=== PATIENT | male | born 1960 | race Caucasian/White ===

== ENCOUNTER → 2016-12-02 | Outpatient (CLI) | payer BC, OTHER ==
--- NOTE | 2016-12-02 17:16 | CT ---
EXAMINATION TYPE: CT foot RT wo con DATE OF EXAM: 12/02/2016 COMPARISON: NONE HISTORY: Post op right big toe sx. CT DLP: 366 mGycm Automated exposure control for dose reduction was used. FINDINGS: Multiple axial sections were obtained from the level of the mid tibia to the bottom of the foot with no contrast. FINDINGS: There is a plate with screws fixing a fracture of the distal shaft of the proximal phalanx of the big toe. Detail is limited by metal artifact. The fragments appear to be in anatomic position. There is narrowing of first MP joint space. IP joint space of the big toe is intact. The metatarsals appear in tact. There are plantar and Achilles calcaneal spurs. Subtalar joint is intact. The ankle mortise is anatomic. IMPRESSION: MODERATE CALCANEAL SPURRING. HEALING FRACTURE OF THE PROXIMAL PHALANX OF THE BIG TOE. POSTSURGICAL CH ANGES. I HAVE NO OLD EXAM TO COMPARE. FRACTURE LINE IS STILL VISIBLE. I SEE NO FOCAL BONE DESTRUCTION TO SUGGEST OSTEOMYELITIS.
== END | disposition home or self-care (01) ==
LOC: RADCTMAIN 15:51
PROVIDERS: ATTEND Orthopaedic Surgery
DX: M77.31 Calcaneal spur, right foot (principal); Z98.890 Other specified postprocedural states

== ENCOUNTER → 2021-08-19 | Outpatient (CLI) | payer BC ==
--- NOTE | 2021-08-20 07:48 | CTL ---
EXAMINATION TYPE: CT Low Dose Lung DATE OF EXAM ORDERED: 08/19/2021 HISTORY: Tobacco use. Lung cancer screening CT DLP: 92.[address] CTDI: 2.6 mGy Automated exposure control for dose reduction was used. SCREENING VISIT: Baseline COMPARISON: None available TECHNIQUE: Low dose computed tomography scan was performed through the chest at 1 mm thick sections a nd reconstructed images in multiple planes at 1 mm and [address] DIAGNOSTIC QUALITY: Satisfactory FINDINGS: LUNG NODULES: None. Right lower lobe solid suspicious nodule with spiculated margin measuring 18 x 20 mm image 182. LUNGS: COPD: Severity: None Fibrosis: Severity: None Lymph nodes: No pathologically enlarged lymph nodes by this nonenhanced CT scan. Other findings: Right lower lobe linear pulmonary atelectasis adjacent to the described lung lesion. RIGHT PLEURAL SPACE: Effusion: None Calcification: None Thickening: None Pneumothorax: None LEFT PLEURAL SPACE: Effusion: None Calcification: None Thickening: None Pneumothorax: None HEART: Heart Size: Normal Coronary Calcification: None Pericardial Effusion: None OTHER FINDINGS: Upper abdomen: None Bony thorax: Indeterminate lucency within the sternum, for further bone scan assessment. No destructi ve bone lesion. Supraclavicular region: None Other: Right axillary surgical clips. The pulmonary trunk measures 3.2 cm. IMPRESSION: Right lower lobe suspicious lesion with spiculated margin measuring up to 2 cm as describ ed above, for further PET scan assessment and tissue diagnosis. Subtle lucency within the sternum, po ssibly benign however precautionary bone scan should be considered. CT LUNG RAD AND CT CHEST RECOMMENDATION: Lung-Rad 4B or 4X Very Suspicious: Follow-up Chest CT with o r without contrast or PET/CT and/or tissue sampling. PET/CT may be used when there is a > 8 mm solid component. S Modifier (other clinically significant findings): Sternal lesion as described above
== END | disposition home or self-care (01) ==
LOC: RADCTMAIN 18:25
PROVIDERS: ATTEND Family Medicine
DX: Z09 Encounter for follow-up examination after completed treatment for conditions other than malignant neoplasm (principal); Z87.891 Personal history of nicotine dependence
CPT/HCPCS: 71271

== ENCOUNTER 2021-09-15 08:00 | Day surgery (SDC) | payer BC ==
[2021-09-11 18:04] VITALS: BMI 36.7
[~2021-09-15 08:00] MED LIST: LACTATED RINGERS 1,000 ML IV SCH; LIDOCAINE 1% (10MG/ML) FOR IV START INTRADERMA PRN
[2021-09-15] MEDS ORDERED: LACTATED RINGERS 1,000 ML IV ONE (08:39)
[2021-09-15 08:49] VITALS: TEMP 97.8
[2021-09-15] MEDS ORDERED: LIDOCAINE 1% INJ 10MG/ML (20 ML MDV) ONE (09:09)
[2021-09-15] MEDS ORDERED: PROPOFOL 10 MG/ML 20 ML VIAL IV ONE (09:09)
--- NOTE | 2021-09-15 09:28 | P.PCN ---
Date of Procedure: 09/15/21 Procedure(s) Performed: BRIEF HISTORY: Patient is a 60-year-old pleasant male scheduled for an elective colonoscopy as a part of screening for colorectal neoplasia. Last colonoscopy was 11 years PROCEDURE PERFORMED: Colonoscopy With snare polypectomy PREOPERATIVE DIAGNOSIS: Screening for colon cancer. IV sedation per Anesthesia. PROCEDURE: After informed consent was obtained, the patient, was brought into the endoscopy unit. IV sedation was administered by Anesthesia under continuous monitoring. Digital rectal examination was normal. Initially the Olympus CF-160 flexible video colonoscope was then inserted in the rectum, gradually advanced into the cecum without any difficulty. Careful examination was performed as the scope was gradually being withdrawn. Ileocecal valve and the appendiceal orifice were visualized and appeared normal. Prep was excellent. Mucosa of the cecum, we normal. In the ascending colon there was a 3 mm and 6 mm polyps removed by snare polypectomy. In the past flexure there was a 5 mm sessile polyp removed by snare polypectomy. In the transverse colon there was a 5 mm polyp that was removed by snare polypectomy. Rest of the ascending colon, transverse colon, descending colon, sigmoid colon, and rectum appeared normal. Retroflexion was performed in the rectum and no lesions were seen. The patient tolerated the procedure well. IMPRESSION: 5 mm sessile hepatic flexure polyp status post polypectomy 3 mm and 6 mm ascending colon polyp status post polypectomy 5 mm transverse colon polyp status post polypectomy RECOMMENDATIONS: Findings of this examination were discussed with the patient as well as a family. He was advised to follow with the biopsy results. If the biopsy results adenoma he can have a repeat colonoscopy in 3 years.
[2021-09-15 09:37] VITALS: RESP 16
[2021-09-15 09:58] VITALS: BP 158/95; PULSE 61
== END 2021-09-15 10:08 | disposition home or self-care (01) ==
LOC: ORWHC2ENDO 08:00
PROVIDERS: ATTEND Internal Medicine Gastroenterology
DX: Z12.11 Encounter for screening for malignant neoplasm of colon (principal); D12.3 Benign neoplasm of transverse colon; D12.2 Benign neoplasm of ascending colon; I10 Essential (primary) hypertension; G47.33 Obstructive sleep apnea (adult) (pediatric); Z79.82 Long term (current) use of aspirin; Z79.899 Other long term (current) drug therapy
CPT/HCPCS: 88305; 45385; J2001; J2704

== ENCOUNTER → 2021-09-16 | Outpatient (CLI) | payer BC ==
--- NOTE | 2021-09-11 15:46 | PE ---
EXAMINATION TYPE: PET CT fusion skull to thigh DATE OF EXAM: 09/11/2021 COMPARISON: Low-dose lung screening CT August 19, 2021 HISTORY: Solitary pulmonary nodule, abnormal CT. TECHNIQUE: Following the intravenous administration of 9.98 mCi of F-18 FDG, whole body images are p erformed from the skull base to the midthigh. Images are reviewed on the computer in the coronal, ax ial, and sagittal planes. Reconstructed rotating images are created on independent workstation and r eviewed on the computer. A localization and attenuation correction CT is performed in conjunction w ith the PET scan. Blood glucose level equals 102. SCAN: Initial Scan FINDINGS: SKULL BASE AND NECK: No areas of abnormal hypermetabolic uptake. CHEST, MEDIASTINUM, AND HILAR REGION: Persistent suspicious 2.0 x 1.7 cm superior right lower lobe no dule axial image 118 with mild hypermetabolic uptake, max SUV is 2.86. No additional areas of abnormal hypermetabolic uptake in the thorax. ABDOMEN AND PELVIS: No adrenal masses. No abnormal hypermetabolic uptake. Normal excretion. OSSEOUS STRUCTURES: No abnormal hypermetabolic uptake. OTHER CT: No significant incidental finding. IMPRESSION: Persistent 2.0 cm superior right lower lobe nodule with mild hypermetabolic uptake. Neopl asm cannot be excluded. No suspicious adenopathy or metastatic disease seen.
--- NOTE | 2021-09-16 15:16 | NM ---
EXAMINATION TYPE: NM bone scan whole body DATE OF EXAM: 09/16/2021 COMPARISON: NONE HISTORY: R91.[address], R91.1 Lung nodule Delayed whole-body scanning was performed following the injection of 23.7 mCi Tc 99m MDP. Images acq uired 3 hours post injection. FINDINGS: Increased radiotracer accumulation is noted to involve the shoulders, sternoclavicular joints, mid th oracic spine, lumbar spine, bilateral knees left greater than right as well as bilateral ankles and f eet. Focal area of increased radiotracer accumulation is noted to involve the right temporal calvariu m as well as the sternal manubrium. IMPRESSION: Radiographic correlation of the bony calvarium and sternum is recommended to exclude metastatic disea se.
== END | disposition home or self-care (01) ==
LOC: RADNMMAIN 09-11 07:42
PROVIDERS: ATTEND Family Medicine
DX: R91.1 Solitary pulmonary nodule (principal); R91.8 Other nonspecific abnormal finding of lung field
CPT/HCPCS: 78815; 78306; A9552; A9503

== ENCOUNTER 2021-09-24 12:47 | Day surgery (SDC) | payer BC ==
[2021-09-23 08:53] VITALS: BMI 35.3
[~2021-09-24 12:47] MED LIST changes: +ALBUTEROL NEB (CONC) 2.5 MG/0.5 ML INHALATION ONE; +DEXAMETHASONE SOD PHOSPHATE 4 MG/ML 1 ML VIAL IV ONE; +LIDOCAINE 2% (PF) 20 MG/ML 5 ML VIAL INHALATION ONE; +LIDOCAINE VISCOUS 300 MG/15 ML CUP MUCOUS MEM ONE; +ONDANSETRON 4 MG/2 ML VIAL IVP ONE; +SODIUM CHLORIDE 0.9% 1,000 ML IV SCH; +fentaNYL (PF) 50 MCG/ML 2 ML AMP IV PRN
[2021-09-24 13:28] VITALS: RESP 16; TEMP 97.1
--- NOTE | 2021-09-24 14:21 | CT ---
EXAMINATION TYPE: CT Chest zhanna Navarrete Protocol DATE OF EXAM: 09/24/2021 COMPARISON: PET/CT September 11, 2021 HISTORY: Navigational bronchoscopy CT DLP: 771 mGycm Automated exposure control for dose reduction was used. FINDINGS: Exam is for bronchoscopy planning for diagnostic purposes. Redemonstration of targeted spiculated 1.8 cm mass in the right lower lobe image 35 series 6. No other significant finding is seen. IMPRESSION: As above.
[2021-09-24] MEDS ORDERED: fentaNYL (PF) 50 MCG/ML 2 ML AMP ONE (14:45)
[2021-09-24] MEDS ORDERED: PHENYLEPHRINE-0.9% NACL SYG 1,000 MCG/10 ML SYRINGE ONE (14:45)
[2021-09-24] MEDS ORDERED: MIDAZOLAM 2 MG/2 ML VIAL ONE (14:45)
[2021-09-24] MEDS ORDERED: LIDOCAINE 2% INJ 20 MG/ML (2 ML VIAL) ONE (14:45)
[2021-09-24] MEDS ORDERED: SUCCINYLCHOLINE CHLORIDE 100 MG/5 ML SYR IV ONE (14:45)
[2021-09-24] MEDS ORDERED: ePHEDrine 50 MG/ML 1 ML VIAL ONE (14:45)
[2021-09-24] MEDS ORDERED: PROPOFOL 10 MG/ML 20 ML VIAL IV ONE (14:45)
--- NOTE | 2021-09-24 15:30 | P.PCN ---
Date of Procedure: 09/24/21 Operative Findings: Preoperative Diagnosis: right lower lobe lesion Postoperative Diagnosis: right lower lobe lesion Procedure(s) Performed: Navigational bronchoscopy, airway inspection,right lower lobe lesion transbronchial biopsy, transbronchial brushing and transbronchial needle aspirate Anesthesia: NEMESIO Surgeon: Federico Garces Firer Helper #1: Stella Parnell Estimated Blood Loss (ml): 0 Pathology: other Condition: stable Disposition: same day Operative Findings: The patient had a preoperative computed tomography scan of the chest using the Veran protocol. The CAT scan images were reviewed. The left upper lobe opacity was identified it was mapped appropriately. The CAT scan images are uploaded into a USB and then into the [employer] Navigation tower. After obtaining the consent the patient was taken to the OR suite he was intubated and put on mechanical ventilation by anesthesia then the scope was advanced to the ET tube until the Trachea was seen and it was normal and then the dwight appears normal then the scope advanced to the left main and TAMIE LB1- LB3 were seen and no endobronchial lesions were seen then the scope advanced to the lingula and the LB4 and LB5 were seen and no endobronchial lesions were seen the scope retracted and advanced to the left lower lobes LB6 to LB12 were seen one by one and no endobronchial lesions, then the scope was retracted back to the dwight and advanced to the Right main and RUL RB1 and RB2 and RB3 were seen one by one and no endobronchial lesions were seen the scope then retracted and advanced to the BI and RML RB4 and RB5 were seen and no endobronchial lesions were seen then it was retracted and advanced to the RLL RB6 to RB12 were seen one by one and no endobronchial lesions. Navigation bronchoscopy was performed. The main dwight and the secondary dwight on the left were used as the reference points and appropriate calibration was done. Following that, using a navigation for sepsis, the bronchoscope was advanced to the right lower lobe lobe lateral segment and various transbronchial biopsies of the right lower lobe nodule was done without any complications. Using navigational guidance, transbronchial brushing and transbronchial needle aspirate of the right lower lobe pulmonary nodule was also done. No endobronchial bleeding was encountered. The procedure completed without any complications. The bronchoscope was removed. The patient was extubated and following that the patient was transferred recovery in stable condition. The chest x-rays to follow to rule out pneumothorax. If all is negative and stable, the patient will be discharged home to be followed up with us in the office.
--- NOTE | 2021-09-24 16:07 | XR ---
EXAMINATION TYPE: XR chest 1V DATE OF EXAM: 09/24/2021 COMPARISON: Chest CT earlier today. HISTORY: Postbronchoscopy. TECHNIQUE: Single AP portable frontal upright view of the chest is obtained. FINDINGS: Right basilar opacity corresponding to the area of concern is redemonstrated. There is no pneumothorax identified bilaterally after bronchoscopy. The cardiac silhouette size is stable and wi thin normal limits. The osseous structures are intact. IMPRESSION: As above.
[2021-09-24 17:02] VITALS: BP 133/72; PULSE 87
== END 2021-09-24 17:18 | disposition home or self-care (01) ==
LOC: ORWHC2ENDO 12:47
PROVIDERS: ATTEND Internal Medicine Critical Care Medicine
DX: R91.1 Solitary pulmonary nodule (principal); I10 Essential (primary) hypertension; G47.33 Obstructive sleep apnea (adult) (pediatric); Z79.899 Other long term (current) drug therapy; Z87.891 Personal history of nicotine dependence; Z79.82 Long term (current) use of aspirin
CPT/HCPCS: 31629; 88104; 88305; 71045; 71250; 31625; 31633; 31623; 31627; J2250; J1100; J2405; J3010; J2370; J0330; J2704; J2001

== ENCOUNTER → 2022-02-22 | Outpatient (CLI) | payer BC ==
--- NOTE | 2022-02-22 09:02 | CT ---
EXAMINATION TYPE: CT chest w con DATE OF EXAM: 02/22/2022 COMPARISON: Prior CT August 19, 2021 and PET/CT September 11, 2021 HISTORY: Malignant neoplasm of unspecified part of right bronchus. History of interval surgery. CT DLP: 804 mGycm. Automated Exposure Control for Dose Reduction was Utilized. TECHNIQUE: CT scan of the thorax is performed following with IV Contrast, patient injected with 70 m L of Isovue 300. FINDINGS: LUNGS: Mild to moderate focal linear scarring and/or atelectasis medial right lung base noted on curr ent study. Prior right lower lobe nodule has been resected in the interval. No new greater than 5 mm pulmonary nodules. Some new right-sided volume loss from interval surgery is present. Surgical change s towards the right hilum are seen. MEDIASTINUM: There are no new greater than 1 cm hilar or mediastinal lymph nodes. No cardiomegaly o r pericardial effusion is seen. OTHER: Slight nodular thickening to left adrenal gland redemonstrated and stable. Occasional benign t hin-walled cysts scattered throughout both kidneys redemonstrated IMPRESSION: Interval successful surgical treatment of right lung neoplasm. No new nodules or adenopat hy noted.
== END | disposition home or self-care (01) ==
LOC: RADCTMAIN 08:07
PROVIDERS: ATTEND Family Medicine
DX: C34.91 Malignant neoplasm of unspecified part of right bronchus or lung (principal)
CPT/HCPCS: 71260; Q9967

== ENCOUNTER → 2022-02-26 | Outpatient (CLI) | payer BC ==
--- NOTE | 2022-02-27 11:30 | MR ---
EXAMINATION TYPE: MR brain wo/w con DATE OF EXAM: 02/26/2022 COMPARISON: NONE HISTORY: RIGHT LUNG CANCER diagnosed in August. TECHNIQUE: Multiplanar, multisequence images of the brain and brainstem is performed without and with IV contras t, utilizing 12 mL intravenous Gadavist . FINDINGS: Diffusion weighted images demonstrate no evidence of a recent infarct or other diffusion ab normality. There is no extra-axial fluid collection or significant white matter signal abnormality. The ventricular system and cisternal spaces are normal in size and appearance. The brain volume is age appropriate. Midline structures demonstrate normal morphology. The craniocervical junction appears within normal limits. Postcontrast images show multiple enhancing lesions consistent with metastatic disease. For r eference there is Ring-enhancing 7 mm lesion right basal ganglia axial image 32 and coronal image 29. There is additional ring-enhancing 7 mm lesion left brittani axial image 21. There is heterogeneous enha ncing right superior cerebral tendon by 7 mm lesion axial image 21. There is 8 mm enhancing lesion le ft lateral cerebellum axial image 12. There are 2 ring-enhancing left temporal lesions axial image 25 measuring up to 8 mm in size sagittal image 37. Additional scattered near 1.0 cm and subcentimeter m etastatic foci are present. There is also 6 mm right frontal enhancing osseous lesion axial image 37 consistent with osseous meta static disease. Dural venous sinuses appear patent. Globes are intact and visualized paranasal sinuses are clear. IMPRESSION: Metastatic disease to the brain is identified as detailed above. There is also osseous me tastatic disease to the skull noted.
== END | disposition home or self-care (01) ==
LOC: RADMRIMAIN 14:29
PROVIDERS: ATTEND Nurse Practitioner Family
DX: C34.91 Malignant neoplasm of unspecified part of right bronchus or lung (principal)
CPT/HCPCS: 70553; A9585

== ENCOUNTER → 2023-03-04 | Outpatient (CLI) | payer BC ==
--- NOTE | 2023-03-04 13:37 | CT ---
EXAMINATION TYPE: CT abdomen pelvis w con DATE OF EXAM: 03/04/2023 COMPARISON: PET CT 09/11/2021 HISTORY: 62-year-old male R10.31, R10.32, lower abdominal pain x few weeks TECHNIQUE: Contiguous axial scanning of the abdomen and pelvis following administration of 100 ml Iso raegan 300 IV contrast. Delayed images through the kidneys and coronal/sagittal reconstructions perform ed. CT DLP: 2468.60 mGycm Automated exposure control for dose reduction was used. FINDINGS: Heart normal size without pericardial effusion. Post surgical change of right lower lobectomy with po steromedial pleural pericardial scarring. No pleural effusion. No focal liver lesion or biliary duct dilatation. Portal venous system is patent. Gallbladder, right adrenal gland, spleen, and pancreas within normal limits. Bilateral benign renal cortical cysts measuring up to 3.5 cm. Retroaortic left renal vein. There is a 2.2 cm mural mass at the anterior antrum/pyloris of the stomach. There is suggestion of a mass lesion here measuring 2.1 cm on 02/22/2022 in retrospect. However, difficult to clearly appreciat ed on 09/11/2021. Surveillance follow-up recommended to exclude mesenchymal tumor, GIST, metastatic di sease, or other neoplastic process. No dilated small bowel, free fluid, or free air. No mesenteric or retroperitoneal lymphadenopathy. Mild stool burden. There is sigmoid diverticulosis. Focal pericolonic inflammatory fat stranding debbie g the mid sigmoid colon. There is a punctate foci of air beyond the wall of the sigmoid colon, blake l image 55 and axial image 82. Surveillance follow-up recommended to exclude worsening. A couple left -sided pelvic phleboliths. Circumferential bladder wall thickening may be chronic for the patient. Correlate to exclude cystitis . Prostate gland measures 4.1 cm wide, mildly enlarged. No pelvic lymphadenopathy or abnormal fluid c ollection seen. Bones: Advanced spondylotic changes especially L2 through L4 levels. No osseous destructive process. IMPRESSION: 1. SIGMOID DIVERTICULOSIS WITH ACUTE DIVERTICULITIS ALONG THE MID SIGMOID COLON. THERE IS MILD TO MOD ERATE INFLAMMATION BUT A PUNCTATE FOCUS OF FREE AIR LOCATED AWAY FROM THE WALL THE COLON. GIVEN THIS FINDING, RECOMMEND SHORT INTERVAL FOLLOW-UP CT IN CONJUNCTION WITH TREATMENT TO ENSURE ADEQUATE RESPO NSE TO TREATMENT. 2. A 2.2 CM MURAL MASS ALONG THE ANTERIOR WALL OF THE GASTRIC ANTRUM/PYLORUS. IN RETROSPECT, POSSIBLY PRESENT ON 02/22/2022 BUT NOT CLEARLY SEEN ON 09/11/2021. DIFFERENTIAL CONSIDERATIONS INCLUDE MESENCHY MAL TUMOR, GIST, METASTATIC DISEASE, OR OTHER NEOPLASTIC PROCESS. DEPENDING ON CLINICAL SUSPICION, RE COMMEND EITHER DIRECT VISUALIZATION/BIOPSY OR SHORT INTERVAL SURVEILLANCE FOLLOW-UP. 3. PARTIALLY VISUALIZED POSTSURGICAL CHANGES AT THE RIGHT LUNG BASE WITH SOME PLEURAL PARENCHYMAL SCA RRING. opthalmic tech calling physician's office with critical results.
== END | disposition home or self-care (01) ==
LOC: RADCTMAIN 11:02
PROVIDERS: ATTEND Family Medicine
DX: K57.30 Diverticulosis of large intestine without perforation or abscess without bleeding (principal); K57.32 Diverticulitis of large intestine without perforation or abscess without bleeding; K31.89 Other diseases of stomach and duodenum; R91.8 Other nonspecific abnormal finding of lung field; Z98.890 Other specified postprocedural states
CPT/HCPCS: 74177; Q9967

== ENCOUNTER → 2024-10-02 | Outpatient (CLI) | payer OTHER ==
--- NOTE | 2024-10-02 15:25 | XR ---
EXAMINATION TYPE: XR lumbar spine 2 or 3V DATE OF EXAM: 10/02/2024 CLINICAL HISTORY: Low back pain, lung cancer TECHNIQUE: Three views of the lumbar spine are submitted. COMPARISON: CT abdomen and pelvis 03/04/2023 FINDINGS: There are 5 lumbar type vertebral bodies identified. The lumbar spine shows satisfactory alignment w ithout evidence of acute fracture or dislocation. Vertebral body heights are within normal limits. Multilevel disc space narrowing with endplate sclerosis and anterior osteophytosis. The overlying so ft tissue appears unremarkable. IMPRESSION: 1. No acute fracture or dislocation is seen in the lumbar spine. 2. Moderate multilevel degenerative disc disease. [facility], , 10/02/2024 3:22 PM
== END | disposition home or self-care (01) ==
LOC: LABWHC1 15:08
PROVIDERS: ATTEND Family Medicine
DX: M51.360 Other intervertebral disc degeneration, lumbar region with discogenic back pain only (principal)
CPT/HCPCS: 72100